=== PATIENT | male | born 1945 | race Hispanic/Latino ===

== ENCOUNTER 2021-12-26 13:38 | Emergency (ER) | payer OTHER ==
--- NOTE | 2021-12-26 14:51 | EDPHYS ---
Physician Documentation [facility] Name: Eric Ford Age: 76 yrs Sex: Male : 1945 Arrival Date: 12/26/2021 Time: 13:41 Bed DIS3 Private MD: ED Physician Morris Cash HPI: 12/26 14:45 This 76 yrs old Male presents to ER via Ambulatory with complaints of Fever, jmm Cough, covid+. 14:45 Onset: The symptoms/episode began/occurred gradually, 1 day(s) ago. Modifying factors: jmm there are no obvious modifying factors. Is a 76-year-old male no chronic medical conditions presents emerged department with complaints of cough, body aches, fever beginning last night. Patient states he tested positive for COVID. Denies vomiting. Denies abdominal pain, denies chest pain.. Historical: - Allergies: 14:11 No Known Allergies; kb3 - Home Meds: 14:11 None [Active]; kb3 - PMHx: 14:11 None; kb3 - PSHx: 14:11 None; kb3 - Immunization history:: Adult Immunizations unknown, Last tetanus immunization: unknown. - Social history:: Smoking status: Patient denies any tobacco usage or history of. ROS: 14:45 Constitutional: Positive for body aches, chills, fever. jmm 14:45 Respiratory: Positive for cough. 14:45 All other systems are negative. Exam: 14:45 Constitutional: This is a well developed, well nourished patient who is awake, alert, jmm and in no acute distress. Head/Face: atraumatic. Eyes: EOMI, no conjunctival erythema appreciated ENT: Moist Mucus Membranes Neck: Trachea midline, Supple Chest/axilla: Normal chest wall appearance and motion. Cardiovascular: Regular rate and rhythm. No edema appreciated Respiratory: Normal respirations, no respiratory distress appreciated Abdomen/GI: Non distended Back: Normal ROM Skin: General appearance color normal MS/ Extremity: Moves all extremities, no obvious deformities appreciated, no edema noted to the lower extremities Neuro: Awake and alert Psych: Behavior is normal, Mood is normal, Patient is cooperative and pleasant Vital Signs: 14:07 BP 148 / 92; Pulse 99; Resp 20; Temp 100.2; Pulse Ox 97% ; Weight 82.55 kg; Height 5 kb3 ft. 2 in. (157.48 cm); Pain 0/10; 14:07 Body Mass Index 33.29 (82.55 kg, 157.48 cm) kb3 MDM: 14:33 Patient medically screened. [facility] 14:47 Data reviewed: vital signs, nurses notes. Counseling: I had a detailed discussion with [facility] the patient and/or guardian regarding: the historical points, exam findings, and any diagnostic results supporting the discharge/admit diagnosis, the need for outpatient follow up, to return to the emergency department if symptoms worsen or persist or if there are any questions or concerns that arise at home. ED course: Patient is alert and non toxic in appearance in the ED. No signs of resp distress. patient advised to follow up with pcp and othewrise given strict return precautions. Patient understood and agrees with the plan of care. . Administered Medications: No medications were administered Disposition Summary: 12/26/21 14:50 Discharge Ordered Location[facility] Condition: Stable [facility] Diagnosis - Coronavirus infection, unspecified [facility] Followup: [facility] - With: Private Physician - When: 2 - 3 days - Reason: Recheck today's complaints, Continuance of care, Re-evaluation by your physician Discharge Instructions: - Discharge Summary Sheet [facility] Forms: - Medication Reconciliation Form [facility] - Thank You Letter [facility] - Antibiotic Education [facility] - Prescription Opioid Use [facility] Prescriptions: - Bromfed DM 2-30-10 mg/5 mL Oral syrup - take 10 milliliter by ORAL route every 4 hours; 200 milliliter; Refills: 0, [facility] Product Selection Permitted - albuterol sulfate 90 mcg/actuation Inhalation HFA aerosol inhaler - inhale 2 puff by INHALATION route every 4 hours; 1 Pump; Refills: 0, Product [facility] Selection Permitted Addendum: 12/30/2021 04:07 Co-signature as Attending Physician, Morris Cash MD I agree with the assessment and c gallegos plan of care. Signatures: Morris Cash MD MD cha Mickail, Joel, PA PA jmm Bradberry, Kelly, RN RN kb3
--- NOTE | 2021-12-26 14:51 | ER ---
Nurse's Notes [facility] Name: Eric Ford Age: 76 yrs Sex: Male : 1945 Arrival Date: 12/26/2021 Time: 13:41 Bed DIS3 Private MD: Diagnosis: Coronavirus infection, unspecified Presentation: 12/26 14:07 Chief complaint: Patient states: Jessica RN in triage to translate. Pt reports he tested kb3 positive for covid today and he wants to know what medication we can give him. Reports feeling feverish with a cough. No distress noted. He just wants a prescription. Coronavirus screen:. Ebola Screen: Patient reports travel to Ebola-affected area in the 21 days before illness onset. Patient reports having traveled to: Pt is here visiting family from [facility]. Initial Sepsis Screen: Does the patient meet any 2 criteria? No. Patient's initial sepsis screen is negative. Does the patient have a suspected source of infection? No. Patient's initial sepsis screen is negative. Risk Assessment: Do you want to hurt yourself or someone else? Patient reports no desire to harm self or others. Onset of symptoms was December 25, 2021 at 12:00. 14:07 Method Of Arrival: Ambulatory kb3 14:07 Acuity: MAYRA 5 kb3 Triage Assessment: 14:11 General: Appears in no apparent distress. Behavior is calm, cooperative. Pain: Denies kb3 pain. Historical: - Allergies: 14:11 No Known Allergies; kb3 - Home Meds: 14:11 None [Active]; kb3 - PMHx: 14:11 None; kb3 - PSHx: 14:11 None; kb3 - Immunization history:: Adult Immunizations unknown, Last tetanus immunization: unknown. - Social history:: Smoking status: Patient denies any tobacco usage or history of. Vital Signs: 14:07 BP 148 / 92; Pulse 99; Resp 20; Temp 100.2; Pulse Ox 97% ; Weight 82.55 kg; Height 5 kb3 ft. 2 in. (157.48 cm); Pain 0/10; 14:07 Body Mass Index 33.29 (82.55 kg, 157.48 cm) kb3 ED Course: 13:41 Patient arrived in ED. am2 14:11 Triage completed. kb3 14:11 Arm band placed on right wrist. kb3 14:30 Nico Blas PA is PHCP. melisam 14:30 Morris Cash MD is Attending Physician. neelima Administered Medications: No medications were administered Outcome: 14:50 Discharge ordered by . melisam 14:59 Patient left the ED. Signatures: Nico Blas PA PA jmm Baxter, Heather RN RN Michelle García 2 Bernadette Felton, RN RN kb3
[2021-12-26 15:07] VITALS: BP 148/92; TEMP 100.2; O2SAT 97
== END 2021-12-26 14:59 | disposition home or self-care (01) ==
LOC: ER 13:38
DX: U07.1 COVID-19 (principal)
CPT/HCPCS: 99281

== ENCOUNTER 2023-02-15 15:17 | Emergency (ER) | payer OTHER ==
[2023-02-15 16:13] LABS: SARS-CoV-2 Antigen Rapid Res Negative (Negative)
--- NOTE | 2023-02-15 18:00 | RAD REPORT ---
EXAM DESCRIPTION: Michael Bragg (2 Views)02/15/2023 5:25 pm CLINICAL HISTORY: Cough COMPARISON: None FINDINGS: The lungs appear clear of acute infiltrate. The heart is normal size IMPRESSION: No acute abnormalities displayed
--- NOTE | 2023-02-15 18:02 | EDPHYS ---
Physician Documentation [facility] Name: Eric Ford Age: 77 yrs Sex: Male : 1945 Arrival Date: 02/15/2023 Time: 15:17 Bed DIS3 Private MD: ED Physician Gavin Drummond HPI: 02/15 16:24 This 77 yrs old Male presents to ER via Ambulatory with complaints of Cough. rn 16:24 The patient or guardian reports cough, described as moderate, with no sputum. rn 16:24 Onset: The symptoms/episode began/occurred 5 day(s) ago. Severity of symptoms: At their rn worst the symptoms were moderate, in the emergency department the symptoms are unchanged. Modifying factors: The symptoms are alleviated by nothing, the symptoms are aggravated by nothing. The patient has not experienced similar symptoms in the past. The patient has not recently seen a physician. Patient reports cough for 5 days, no fever, 2 sick contacts in the house with similar symptoms. Denies any chronic lung problems. No shortness of breath. Reports bilateral flanks and abdomen pain with coughing. No abdominal pain in the absence of cough. No vomiting. No chest pain.. Historical: - Allergies: 15:40 No Known Allergies; cm10 - PMHx: 15:40 Arthritis; Hypertensive disorder; cm10 - Immunization history:: Adult Immunizations unknown. - Social history:: Smoking status: Patient denies any tobacco usage or history of. - Family history:: not pertinent. - Hospitalizations: : No recent hospitalization is reported. ROS: 16:24 Constitutional: Negative for fever, chills, and weight loss, Eyes: Negative for injury, rn pain, redness, and discharge, Neck: Negative for injury, pain, and swelling, Cardiovascular: Negative for chest pain, palpitations, and edema, Respiratory: Positive for cough, negative for shortness of breath Abdomen/GI: Negative for abdominal pain, nausea, vomiting, diarrhea, and constipation, MS/Extremity: Negative for injury and deformity, Skin: Negative for injury, rash, and discoloration, Neuro: Negative for headache, weakness, numbness, tingling, and seizure, Exam: 16:24 Constitutional: This is a well developed, well nourished patient who is awake, alert, rn and in no acute distress. Head/Face: Normocephalic, atraumatic. Cardiovascular: Regular rate and rhythm. No pulse deficits. Respiratory: No increased work of breathing, no retractions or nasal flaring. Abdomen/GI: Soft, non-tender, no peritoneal signs, no distention Neuro: Awake and alert, GCS 15 Vital Signs: 15:38 BP 124 / 76; Pulse 99; Resp 18; Temp 97.1; Pulse Ox 100% ; Weight 81.65 kg; Height 5 cm10 ft. 6 in. ; Pain 10/10; 18:20 Temp 98.3(O); cm10 15:38 Body Mass Index 29.05 (81.65 kg, 167.64 cm) cm10 15:38 Pain Scale: Adult cm10 MDM: 15:38 Patient medically screened. rn 18:01 Differential Diagnosis: Bronchitis Influenza Upper Respiratory Infection Pharyngitis rn Viral Syndrome Pneumonia. Data reviewed: vital signs, nurses notes, lab test result(s), radiologic studies, plain films, and as a result, I will discharge patient. Counseling: I had a detailed discussion with the patient and/or guardian regarding the historical points, exam findings, and any diagnostic results supporting the discharge/admit diagnosis, lab results, radiology results, the need for outpatient follow up, to return to the emergency department if symptoms worsen or persist or if there are any questions or concerns that arise at home. Special discussion: I discussed with the patient/guardian in detail that at this point there is no indication for admission to the hospital. It is understood, however, that if the symptoms persist or worsen the patient needs to return immediately for re-evaluation. 02/15 15:44 Order name: Flu; Complete Time: 16:53 cm10 02/15 15:44 Order name: SARS RAPID; Complete Time: 16:53 cm10 02/15 15:44 Order name: Strep; Complete Time: 16:53 cm10 02/15 16:18 Order name: Throat Culture EDMD 02/15 15:44 Order name: XRAY Chest Pa And Lat (2 Views); Complete Time: 18:01 cm10 Administered Medications: No medications were administered Disposition Summary: 02/15/23 18:01 Discharge Ordered Notes: Location: Home rn Problem: new rn Symptoms: have improved rn Condition: Stable rn Diagnosis - Influenza due to identified novel influenza A virus with other respiratory rn manifestations - Cough rn Followup: rn - With: Private Physician - When: As needed - Reason: Recheck today's complaints, Re-evaluation by your physician Discharge Instructions: - Discharge Summary Sheet rn - Influenza, Adult rn - Cough, Adult rn Forms: - Medication Reconciliation Form rn - Thank You Letter rn - Antibiotic apprentice pattern maker - Prescription Opioid Use rn - Patient Portal Instructions rn - Leadership Thank You Letter rn Prescriptions: - Tamiflu 75 mg Oral capsule - take 1 tablet ORAL route every 12 hours for 5 days; 10 tablet; Refills: 0, rn Product Selection Permitted - Guaifenesin AC 10-100 mg/5 mL Oral Liquid - take 10 milliliters ORAL route every 4 hours As needed; 240 milliliter; rn Refills: 0, Product Selection Permitted Signatures: Dispatcher [employer] Gavin Lance MD MD rn Martinez, Clarissa, RN RN cm10
--- NOTE | 2023-02-15 18:02 | ER ---
Nurse's Notes [facility] Name: Eric Ford Age: 77 yrs Sex: Male : 1945 Arrival Date: 02/15/2023 Time: 15:17 Bed DIS3 Private MD: Diagnosis: Influenza due to identified novel influenza A virus with other respiratory manifestations;Cough Presentation: 02/15 15:38 Chief complaint: Patient states: Productive cough onset Wednesday. Pt reports taking cm10 over the counter medication with no relief. Pt reports left rib pain and left abdominal pain from the cough. Coronavirus screen: Vaccine status: Patient reports receiving the 2nd dose of the covid vaccine. Client denies travel out of the [place] in the last 14 days. Ebola Screen: Patient denies travel to an Ebola-affected area in the 21 days before illness onset. No symptoms or risks identified at this time. Initial Sepsis Screen: Does the patient meet any 2 criteria? No. Patient's initial sepsis screen is negative. Does the patient have a suspected source of infection? No. Patient's initial sepsis screen is negative. Risk Assessment: Do you want to hurt yourself or someone else? Patient reports no desire to harm self or others. Onset of symptoms was February 15, 2023. 15:38 Method Of Arrival: Ambulatory 10 15:38 Acuity: MAYRA 3 cm10 Triage Assessment: 15:40 General: Appears in no apparent distress. comfortable, Behavior is calm, cooperative. cm10 Pain: Complains of pain in abdomen. Neuro: No deficits noted. Level of Consciousness is awake, alert, obeys commands, Oriented to person, place, time, situation. Respiratory: No deficits noted. Airway is patent Respiratory effort is even, unlabored, Respiratory pattern is regular, symmetrical. GI: No deficits noted. : No deficits noted. No signs and/or symptoms were reported regarding the genitourinary system. Derm: No deficits noted. No signs and/or symptoms reported regarding the dermatologic system. Skin is intact, Skin is pink, warm \T\ dry. Musculoskeletal: No deficits noted. No signs and/or symptoms reported regarding the musculoskeletal system. Range of motion: intact in all extremities. Historical: - Allergies: 15:40 No Known Allergies; cm10 - PMHx: 15:40 Arthritis; Hypertensive disorder; cm10 - Immunization history:: Adult Immunizations unknown. - Social history:: Smoking status: Patient denies any tobacco usage or history of. - Family history:: not pertinent. - Hospitalizations: : No recent hospitalization is reported. Screenin:20 [facility] ED Fall Risk Assessment (Adult) History of falling in the last 3 months, cm10 including since admission No falls in past 3 months (0 pts) Confusion or Disorientation No (0 pts) Intoxicated or Sedated No (0 pts) Impaired Gait No (0 pts) Mobility Assist Device Used No (0 pt) Altered Elimination No (0 pt) Score/Fall Risk Level 0 - 2 = Low Risk Oriented to surroundings, Maintained a safe environment, Hourly rounding (assess needs \T\ fall precautionary measures) done. Abuse screen: Denies threats or abuse. Denies injuries from another. Nutritional screening: No deficits noted. Tuberculosis screening: No symptoms or risk factors identified. Vital Signs: 15:38 BP 124 / 76; Pulse 99; Resp 18; Temp 97.1; Pulse Ox 100% ; Weight 81.65 kg; Height 5 cm10 ft. 6 in. ; Pain 10/10; 18:20 Temp 98.3(O); cm10 15:38 Body Mass Index 29.05 (81.65 kg, 167.64 cm) cm10 15:38 Pain Scale: Adult cm10 ED Course: 15:20 Patient arrived in ED. mr 15:38 Gavin Drummond MD is Attending Physician. rn 15:40 Triage completed. cm10 15:40 Arm band placed on Patient placed in waiting room. cm10 17:27 XRAY Chest Pa And Lat (2 Views) In Process Unspecified. EDMS 18:20 Patient has correct armband on for positive identification. Provided Education on: ER cm10 process and procedures. . 18:20 No provider procedures requiring assistance completed. Patient did not have IV access cm10 during this emergency room visit. Administered Medications: No medications were administered Medication: 18:20 VIS not applicable for this client. cm10 Outcome: 18:01 Discharge ordered by . rn 18:21 Discharged to home ambulatory, cm10 18:21 Condition: good 18:21 Discharge instructions given to patient, Instructed on discharge instructions, follow up and referral plans. Demonstrated understanding of instructions, follow-up care, 18:21 Patient left the ED. cm10 Signatures: Dispatcher [employer] Lyly Granger, Reg Reg Gavin Salazar MD MD rn Martinez, Clarissa, RN RN cm10
[2023-02-15 18:26] VITALS: BP 124/76; O2SAT 100
[2023-02-15 18:28] VITALS: TEMP 98.3
== END 2023-02-15 18:21 | disposition home or self-care (01) ==
LOC: ER 15:17
DX: J10.1 Influenza due to other identified influenza virus with other respiratory manifestations (principal); Z11.52 Encounter for screening for COVID-19; I10 Essential (primary) hypertension
CPT/HCPCS: 36415; 71046; 87070; 87081; 87804; 87811; 99282